=== PATIENT | female | born 1975 | race Caucasian/White ===

== ENCOUNTER 2018-09-06 09:46 | Emergency (ER) | payer OTHER ==
[~2018-09-06] VITALS: Ht 160 cm; Wt 68.0 kg
[2018-09-06] MEDS ORDERED: PROVENTIL HFA6.7 GM (09:55)
[2018-09-06] MEDS ORDERED: SINGULAIR5 MG (09:55)
[2018-09-06] MEDS ORDERED: SYMBICORT 80/10.2 GM (09:55)
== END 2018-09-06 14:38 | disposition home or self-care (01) ==
LOC: ER 09:46
DX: R51 Headache (principal)

== ENCOUNTER 2018-09-24 19:43 | Emergency (ER) | payer OTHER ==
[~2018-09-24] VITALS: Ht 160 cm; Wt 69.9 kg
[~2018-09-24 19:43] MED LIST: PROVENTIL HFA6.7 GM; SINGULAIR5 MG; SYMBICORT 80/10.2 GM
[2018-09-25] MEDS ORDERED: MECLIZINE HCL25 MG PO (01:58)
== END 2018-09-25 02:02 | disposition home or self-care (01) ==
LOC: ER 19:43
DX: R42 Dizziness and giddiness (principal)